=== PATIENT | male | born 1995 | race Caucasian/White ===

== ENCOUNTER 2018-02-17 13:36 | Inpatient (IN) | payer BC, OTHER ==
[~2018-02-17] VITALS: Ht 167.6 cm; Wt 60.8 kg
--- NOTE | 2018-02-17 21:45 | NUR ---
INTAKE ASSESSMENT BP:111/66, HR: 66, RR: 16,SpO2:97%, T:98.0 Pt is stable and able to be admitted on the unit. Pt reports he is here to detox off of Heroin and Methamphetamine. He reports he uses Heroin and Meth via IV or smoking 1-1.5 grams daily. Last use was 0100. Unit protocols regarding mediations and vitals signs Q4H were explained. Will continue admission upon arrival on the unit.
--- NOTE | 2018-02-17 21:54 | NUR ---
ADMISSION NOTE PATIENT IS A 23 YEAR OLD MALE WHO PRESENTS TO [facility] FOR MEDICALLY SUPERVISED WITHDRAWAL FROM HEROIN AND METHAMPHETAMINE. HEIGHT IS 56 AND WEIGH IS 138 LBS. BODY CHECK DONE. SKIN INTACT. RESPIRATION EVEN AND UNLABORED. NO SOB. LUNGS CLEAR AND ABDOMEN SOFT AND NON-DISTENDED. BOWEL SOUNDS ACTIVE. PATIENT PRESENTS WITH FLAT AFFECT, DEPRESSED MOOD, EYE AVOIDANT, ODOROUS, FINGERNAILS DIRTY, DISHEVELED, HAIR IS MESSY, UNSHAVEN, MODERATELY INTOXICATED. PATIENT DOZES OFF DURING INTERVIEW AND DELAYED IN RESPONSE. PATIENT DENIES PAST MEDICAL HISTORY, NO SEIZURE HISTORY, NO HISTORY OF OVERDOSE, NO INVOLUNTARY PSYCH HOSPITALIZATION AND NO S/HI. PATIENT CLOSED OFF AND DOES NOT WANT TO ELABORATE. PATIENT ANXIOUS, IRRITABLE, SWEATING , YAWNING AND NOSE STUFFY. COWS 6 UPON ASSESSMENT. PATIENT HAS NOT PROVIDED UA AT THIS TIME. PATIENT REQUESTED TO BE FULL CODE AND ON REGULAR DIET. PATIENT STATES HES HOMELESS AND UNEMPLOYED. PATIENT IS SEEKING TREATMENT BECAUSE I WANT TO STOP . HE STATES ITS HIS FIRST TIME IN DETOX AND NEVER TRIED TO GET SOBER. PATIENT DOES NOT HAVE PCP. SUBSTANCE HISTORY 1. HEROIN IV/SMOKE-STARTED USING AT AGE 17. HE TAKES 1-1.5 GRAM DAILY FOR 6 YEARS. LAST USE WAS 1 GRAM ON 02/17/18 AT 0100 2.METHAMPHETAMINE IV/SMOKE-STARTED USING AT AGE 19. HE TAKES 1-1.5 GRAM DAILY FOR 4 YEARS. LAST USE WAS 1 GRAM ON 02/17/18 AT 0100. PATIENT REFUSES PNEUMONIA VACCINE. PATIENT ORIENTED TO SURROUNDINGS AND HOW TO USE CALL LIGHT . SAFETY MEASURES IN PLACE. CALL LIGHT IN REACH. WILL CONTINUE TO MONITOR. Addendum: 02/18/18 at 0703 by DALIA BEST LVN PATIENT WAS HERE AT 2009 AT INTAKE AT STATES THAT HE DOES NOT WANT TO BE HERE AND LEFT. PATIENT CAME BACK. PATIENT INTOXICATED DESPITE STATING HE LAST USE HEROIN AND METHAMPHETAMINE AT 0100 ON 02/17/18. PATIENT CAME IN WITH CONTRABAND.
[2018-02-17] MEDS ORDERED: LOPERAMIDE HCL 2 MG CAPSULE PO PRN ×2 (22:15)
[2018-02-17] MEDS ORDERED: BUPRENORPHINE HCL 2 MG TAB.SUBL SL PRN (22:15)
[2018-02-17] MEDS ORDERED: IBUPROFEN 400 MG TABLET PO PRN (22:15)
[2018-02-17] MEDS ORDERED: ONDANSETRON 4 MG/2 ML VIAL IM PRN (22:15)
[2018-02-17] MEDS ORDERED: METHOCARBAMOL 750 MG TABLET PO PRN (22:15)
[2018-02-17] MEDS ORDERED: HYDROXYZINE PAMOATE 25 MG CAPSULE PO PRN (22:15)
[2018-02-17] MEDS ORDERED: MAG HYDROX/AL HYDROX/SIMETH 30 ML LIQUID UDC PO PRN (22:15)
[2018-02-17] MEDS ORDERED: MIRALAX 17 GM POWD.PACK PO PRN (22:15)
[2018-02-17] MEDS ORDERED: ACETAMINOPHEN 325 MG TABLET PO PRN (22:15)
[2018-02-17] MEDS ORDERED: ONDANSETRON ODT 4 MG TAB.RAPDIS SL PRN (22:15)
[2018-02-17] MEDS ORDERED: diphenhydrAMINE 50 MG CAPSULE PO PRN (22:15)
[2018-02-17] MEDS ORDERED: CLONIDINE HCL 0.1 MG TABLET PO PRN (22:15)
[2018-02-17] MEDS ORDERED: MAGNESIUM HYDROXIDE 30 ML LIQUID UDC PO PRN (22:15)
[2018-02-18] VITALS: BP 107/69
--- NOTE | 2018-02-18 | NUR ---
COWS ASSESSMENT PATIENT WOKE UP WHEN VS WAS TAKEN. PATIENT ANXIOUS, IRRITABLE AND NOTED SWEATING. CIWA 5 UPON ASSESSMENT. WILL CONTINUE TO MONITOR
[2018-02-18] MEDS ORDERED: PERI-COLACE (02:01)
[2018-02-18 04:00] VITALS: BP 106/68
--- NOTE | 2018-02-18 04:00 | NUR ---
COWS ASSESSMENT PATIENT IN BED WITH EYES CLOSED. RESPIRATION EVEN AND UNLABORED. WILL CONTINUE TO MONITOR. Addendum: 02/18/18 at 0707 by DALIA BEST LVN [place]
--- NOTE | 2018-02-18 07:12 | NUR ---
END OF SHIFT NOTE PATIENT SLEPT 5 HOURS. FLUID INTAKE 250 ML. VOIDED X 0. NO BM. MONITORED PATIENT THROUGHOUT SHIFT. UA HAS NOT BEEN PROVIDED AT THIS TIME. HE REFUSED BLOOD DRAW. PATIENT DID NOT RECEIVE ANY PRN MEDICATION. PATIENT CAME IN MODERATELY INTOXICATED. ENCOURAGED FLUIDS. LAST COWS 5. SAFETY MEASURES IN PLACE. CALL LIGHT IN REACH. WILL CONTINUE TO MONITOR.
[2018-02-18 08:00] VITALS: BP 121/75
--- NOTE | 2018-02-18 08:00 | NUR ---
Start of Shift Notes: Received patient in his room. He appears disheveled and unkempt. He is unshaved with hair tangled and uncombed. Room appears messy and odorous. There was garbage on the floor and clothes on the floor. Patient appears sedated and hypersomnolent but arousable when his name is called. He is noted to fall back to sleep immediately. He refused blood draw this AM and has not given urine for UDS. Education provided. Encouraged to comply with unit's rules and to maintain his personal hygiene and space. Patient is a 23 year old male admitted for opiate and methamphetamine withdrawal. He was placed on a 5-day Subutex taper as ordered that will be starting this AM. He did not receive any PRN meds during the nigh and slept for most of the night. All needs met and attended. Will continue to monitor.
[2018-02-18] MEDS ORDERED: 5 DAY TAPER BUPRENORPHINE -SERENITY PROTOCOL SL PRN (09:00)
[2018-02-18] MEDS ORDERED: TUBERCULIN,PURIF.PROT.DERIV. 5 TU/0.1 ML TEST ID ONE (09:00)
--- NOTE | 2018-02-18 09:00 | NUR ---
COWS deferred; Patient is sedated and somnolent. He is laying in bed with eyes closed. Breathing even and unlabored. Will obtain COWS when patient is awake per MDs orders. Safety precautions in placed. Call light in reach. Will monitor closely.
[2018-02-18] MEDS: BUPRENORPHINE HCL 2 MG TAB.SUBL SL SCH ×4 (09:59→21:02)
--- NOTE | 2018-02-18 09:59 | NUR ---
Subutex 4 mg SL/TB test not adminstered: Patient continues to be sedated. Subutex 4 mg held at this time. TB test offered. Patient states "No, I'm OK." Patient education provided regarding the risk and benefits but patient still refused. Will continue to monitor and encourage to comply with unit's rules. He still has not provided urine for UDS at this time.
--- NOTE | 2018-02-18 10:57 | NUR ---
COWS Assessment: Patient is now awake. He was able to provide urine for UDS. He states he will have labs drawn in 1 hour. He complains of mild restlessness and anxiety. He states "I don't feel that bad yet cause I just used right before coming in here." Patient education provided regarding his medication regimen. Will continue to monitor. Addendum: 02/18/18 at 1702 by SARITA LEUNG LVN COWS 4 upon waking.
--- NOTE | 2018-02-18 10:58 | NUR ---
Additional admission note: Patient is awake, alert and oriented x 4. Verbally responsive. Patient congruent affect with depressed mood. He appears withdrawn with pressured speech. Upon patient interview, patient states that he wants to get sober to get his life together. He verbalizes "I just want to get my life back cause I am homeless right now and it's not fun living in the streets and not having my life back." He reports that his usual s/s of withdrawal is anxiety, agitation and restlessness. He reports that his longest period of sobriety was 60 days in 2017. Will continue to monitor. Addendum: 02/18/18 at 1128 by SARITA LEUNG LVN When asked what are his usual withdrawal symptoms, he states "I just feel anxious like I have to use again so I get restless and agitated."
[2018-02-18 11:24] LABS: *AMPHETAMINE, URINE POSITIVE (NEGATIVE); *BARBITURATE, URINE NEGATIVE (NEGATIVE); *CANNABINOID, URINE NEGATIVE (NEGATIVE); *COCCAINE, URINE NEGATIVE (NEGATIVE); *OPIATE, URINE POSITIVE (NEGATIVE); *PHENCYCLIDINE SCREEN,URINE NEGATIVE (NEGATIVE)
[2018-02-18 11:59] LABS: BASOPHILS % (AUTO) 0.6 % (0.0-2.0); EOSINOPHILS # (AUTO) 0.2 K/uL (0.0-0.7); EOSINOPHILS % (AUTO) 2.6 % (0.0-7.0); HEMATOCRIT 40.4 % (36.7-47.1); HEMOGLOBIN 14.1 g/dL (12.5-16.3); LYMPHOCYTES # (AUTO) 1.4 K/uL (20.0-40.0); LYMPHOCYTES % (AUTO) 22.6 % (20.5-51.5); MEAN CORPUSCULAR HGB CONC 35 g/dL (32.5-36.3); MEAN CORPUSCULAR VOLUME 88.7 fL (73.0-96.2); MONOCYTES # (AUTO) 0.3 K/uL (2.0-10.0); MONOCYTES % (AUTO) 4.2 % (0.0-11.0); NEUTROPHILS # (AUTO) 4.3 K/uL (1.8-8.9); PLATELET COUNT (AUTO) 218 K/uL (152-348); RED BLOOD CELL COUNT(AUTO) 4.56 MIL/uL (4.06-5.63); WHITE BLOOD COUNT (AUTO) 6.2 K/uL (3.6-10.2)
[2018-02-18 12:00] VITALS: BP 113/69
[2018-02-18 12:10] LABS: ALANINE AMINOTRANSFERASE 28 U/L (16-63); ALKALINE PHOSPHATASE 55 U/L (50-136); AMYLASE 43 U/L (25-115); ASPARTATE AMINOTRANSFERASE 24 U/L (15-37); BILIRUBIN,TOTAL 0.3 mg/dL (0.2-1.0); CARBON DIOXIDE 30 mmol/L (21-32); CHLORIDE 105 mmol/L (98-107); CREATININE 1.1 mg/dL (0.6-1.3); GLUCOSE 116 mg/dL (74-106); LIPASE 164 U/L (73-393); MAGNESIUM 1.8 mg/dL (1.8-2.4); POTASSIUM 3.9 mmol/L (3.5-5.1); TOTAL PROTEIN, SERUM 6.8 g/dL (6.4-8.2); UREA NITROGEN, BLOOD 10 mg/dL (7-18)
[2018-02-18 12:11] LABS: ETHANOL < 3 MG/DL (0-0)
[2018-02-18 12:18] LABS: THYROID STIMULATING HORMONE 0.378 mIU/mL (0.358-3.740)
--- NOTE | 2018-02-18 13:15 | NUR ---
Subutex 4 mg SL not administered: Subutex 4 mg SL not administered. Patient refused. He states "It's way too soon to take that, I'm going to be sick." Education provided. Informed patient to call nurse immediately when he is ready.
[2018-02-18 16:00] VITALS: BP 124/82
--- NOTE | 2018-02-18 17:02 | NUR ---
COWS Assessment/Subutex 4 mg SL held: COWS 4, patient noted with restlessness while in bed, facial flushing and sweating noted. Subutex 4 mg SL held at this time. Patient is too sedated. He is noted to fall back asleep when he opens his eyes and is hypersomnolent. VS stable.
--- NOTE | 2018-02-18 19:24 | NUR ---
End of Shift Notes: Patient continues to be on 5-day Subutex taper. Patient is on day 1 today. VS monitored closely. No significant abnormalities noted. Withdrawal symptoms were closely monitored. Initial COWS in AM 4, patient presented with chills, hot flashes, and anxiety. Subutex at 0900, 1300 and 1700 held. Patient states that he is still not ready to take Subutex since he last used minutes prior to coming in here. He was unable to participate in group and activities. Labs drawn. UDS provided. MD aware. Last COWS 4. No PRNs given. Patient was asleep for most of the shift. All needs met and attended. Safety precautions in place. Will continue to monitor.
--- NOTE | 2018-02-18 19:30 | NUR ---
Start of shift note Received report from day shift nurse. Patient is a 23 year old male admitted for Opiate/Meth Withdrawal. Patient was placed on 5 days Subutex taper. Subutex has not been started due to patient's refusal. Patient was educated. Patient did not require PRN medication. Last COWS 4. Patient in the room with flat affect, depressed mood, eye avoidant, disheveled, odorous, diaphoretic, anxious, restless, nauseated, tremors felt but not observed, poor appetite, yawning and restless. Fluids encouraged. Safety measures in place. Call light in reach. Will continue to monitor.
[2018-02-18 20:00] VITALS: BP 112/85
--- NOTE | 2018-02-18 20:00 | NUR ---
COWS Assessment Patient diaphoretic, anxious, restless, nauseated, irritable, agitated, tremors felt but not observed, poor appetite, yawning, sensitive to light and sounds, and restless legs, Fluids encouraged. Safety measures in place. Call light in reach. Will continue to monitor.COWS 12.
--- NOTE | 2018-02-18 21:01 | NUR ---
PRN Zofran SL administration Patient nauseated, no emesis. Will monitor for effectiveness
--- NOTE | 2018-02-18 21:31 | NUR ---
PRN Saeid SL re-assessment Patient states Zofran helpful . Nausea ceased. Will continue to monitor
[2018-02-19] VITALS: BP 136/86
--- NOTE | 2018-02-19 | NUR ---
COWS assessment Patient lying in bed with eyes closed. Respiration even and unlabored. Will continue to monitor. Addendum: 02/19/18 at 0651 by DALIA BEST LVN [place] n[place]
--- NOTE | 2018-02-19 04:00 | NUR ---
COWS deferred Patient lying in bed with eyes closed. Respiration even and unlabored. Will continue to monitor. Addendum: 02/19/18 at 0650 by DALIA BEST LVN Patient refused VS
--- NOTE | 2018-02-19 07:30 | NUR ---
Start of Shift Pt. is a 23 y/o male admitted for the medically managed withdrawal from Opiates and Methamphetamines. Pt. was placed on a 5 day subutex taper to manage withdrawal symptoms. Endorsed pt. presented during previous shift with anxiety, nausea, tremors, irritability, restless, withdrawn guarded and isolative. Received pt. in room laying in bed with eyes closed. Pt. and room both appear disheveled with personal belongings cluttered about. No signs of SOB noted. Pt. arousable to name and touch but does not open his eyes, and just goes back to sleep. Last COW's of 12. Safety measures in place. Will continue to monitor pt.'s behavior for safety.
--- NOTE | 2018-02-19 07:32 | NUR ---
End of shift note Patient slept 11 hours. Fluid intake 500 ml. Voided x 1. No BM . Monitored Patient throughout shift. Patient withdrawn, tends to isolate self. Patient with eye avoidant , flat affect, depressed mood. Patient was diaphoretic, anxious, restless, nauseated, tremors felt but not observed, poor appetite, yawning and restless. Patient started Subutex for COWS 12, no adverse reaction. Patient was educated. Fluids encouraged. Safety measures in place. Call light in reach. Will continue to monitor. Last COWS 12.
[2018-02-19 08:00] VITALS: BP 103/59
--- NOTE | 2018-02-19 08:00 | NUR ---
COW's Assessment Pt. laying in bed moving his feet with eyes closed. Pt. presents as disheveled, diaphoretic, with fine hand tremors, nasal congestion, anxiety and complains of mild body aches. Pt. compliant with taper medications. Will continue to monitor the pt.'s behavior for safety.
--- NOTE | 2018-02-19 08:30 | NUR ---
Treatment History Update Pt. presents as disheveled, guarded, withdrawn, with poor eye contact and a sad affect. Pt. in bed with hair unkempt, and linen falling off the bed at this time. When questioned about previous treatment history pt. responds with eyes still closed. When questioned about previous treatment history responds by saying "I don't remember." Pt. confirms having been in treatment in the past but denies knowing any details about it. Pt. questioned about his most recent treatment but continues to answer "I don't remember" to all inquiries including, name of treatment center, durations of stay, location of treatment center, how recently he was in treatment. Will continue to monitor pt.'s behavior for safety.
[2018-02-19] MEDS: BUPRENORPHINE HCL 2 MG TAB.SUBL SL SCH ×3 (09:30→20:51)
--- NOTE | 2018-02-19 09:30 | NUR ---
Treatment History Update During medication pass pt. was asked about his treatment history. Pt. stated "I think I [facility] in [facility] in [place], maybe in July or August last year, but I really can't remember." Will continue to follow up with pt. as the day goes by. Will continue to monitor pt. for safety.
[2018-02-19 12:00] VITALS: BP 96/53
--- NOTE | 2018-02-19 12:00 | NUR ---
COW's Assessment Pt. continues to lay in bed with closed constantly changing position. Pt. presents as disheveled, diaphoretic, with fine hand tremors, nasal congestion, anxiety, nausea and complains of mild body aches. Pt. compliant with taper medications. Offered pt. PRN's for his symptoms but pt. refused stating he only wanted his Subutex. Will continue to monitor pt.'s behavior for safety.
[2018-02-19 13:07] LABS: HEPATITIS B SURFACE AG Negative (Negative)
[2018-02-19 16:00] VITALS: BP 105/62
--- NOTE | 2018-02-19 16:00 | NUR ---
COW's Assessment COW's 13. Pt. continues to presents as disheveled, diaphoretic, with fine hand tremors, nasal congestion, anxiety and complains of mild body aches. Pt. compliant with taper medications. No PRN's given per pt.'s request. Will continue to monitor pt.'s behavior for safety.
--- NOTE | 2018-02-19 19:11 | NUR ---
End of Shift Pt. is a 23 y/o male admitted for the medically managed withdrawal from Opiates and Methamphetamines. Pt. was placed on a 5 day subutex taper to manage withdrawal symptoms. Throughout shift pt. continuously presented with anxiety, nausea, tremors, irritability, restlessness, withdrawn, guarded and isolative. For the majority of the shift pt. remained in bed. Encouraged pt. to attend groups and activities. Last COW's of 13. No PRN's given during shift. Safety measures in place. Will endorse pt.'s behavior to oncoming shift.
[2018-02-19 20:00] VITALS: BP 109/69
--- NOTE | 2018-02-19 20:00 | NUR ---
Start of Shift Pt is a 23 year old male admitted for Heroin withdrawal, placed on a 5 day Subutex taper. Upon entering pt room, pt presents in bed. Pt is noted is noted to be sleeping, but is easily woken up. Room is messy, clothes thrown on floor. Pt appears disheveled, hair uncombed, flushed, clammy skin with sweat noted throughout body, is odorous, light is off. Pt moans when light is turned on and stated, Please, turn it off. Pt is irritable, anxious and responds to questions vaguely. COWS 12 scheduled medications due. Safety measures in place, will continue to monitor.
[2018-02-20] VITALS: BP 102/69
--- NOTE | 2018-02-20 | NUR ---
COWS deferred due to pt sleeping - to assess while pt is awake as ordered. Respirations unlabored. safety measures in pace, will continue to monitor.
--- NOTE | 2018-02-20 04:00 | NUR ---
COWS deferred due to pt sleeping - to assess while pt is awake as ordered. Respirations unlabored. safety measures in pace, will continue to monitor.
--- NOTE | 2018-02-20 07:20 | NUR ---
End of Shift Pt is a 23 year old male admitted for Heroin withdrawal, placed on a 5 day Subutex taper. During shift, remained in room all throughout shift. Pt is noted is noted to be sleeping, but was easily woken up. Room appears messy, clothes thrown on floor. Pt appears disheveled, hair uncombed, flushed, clammy skin with sweat noted throughout body, is odorous, light is off. Pt moans when light is turned on and stated, Please, turn it off. Pt is irritable, anxious and responds to questions vaguely. COWS 12 scheduled medications administered. Pt encouraged to leave room and participate in activities, however pt become irritable when encouragement is being given. No PRN medications administered during shift. Pt slept for 10 hours, intake of 800 ml and voids x1. Safety measures in place, endorsed to day shift nurse.
--- NOTE | 2018-02-20 07:25 | NUR ---
Start of Shift Pt. is a 23 y/o male admitted for the medically managed withdrawal from Opiates and Methamphetamines. Pt. was placed on a 5 day Subutex taper. Endorse pt. presented with flushed skin, diaphoresis, odorous, light sensitivity, irritability, anxiety, and a disheveled appearance. Received pt. in room. Pt. laying in bed with eyes closed. No Signs of SOB noted. Pt.s person and personal space appears disheveled and malodorous. Pt.s linen is falling of the bed and his personal belongings clutter the floor. Pt. responds to name but becomes irritable and just tries to go back to sleep. Last Cows 12. Encouraged pt. to participate in unit activities and groups. Encouraged pt. to maintain a hygienic person and personal space. Safety measures in place. Will continue to monitor pt.'s behavior for safety.
[2018-02-20 08:00] VITALS: BP 121/81
--- NOTE | 2018-02-20 08:00 | NUR ---
Cow's Assessment COW's of 13. Pt. in his bed and presents with diaphoresis, irritability, restlessness, restless legs, tremors that can be felt, and yawning. Pt. reports an increase sense of anxiety and stomach cramps. Pt. compliant with Subutex taper but refuses offered PRN's. Education provided but pt. still refused PRN medications. Will continue to monitor pt.'s behavior safety.
[2018-02-20] MEDS ORDERED: BUPRENORPHINE HCL 2 MG TAB.SUBL SL SCH (09:00)
[2018-02-20] MEDS: DICYCLOMINE HCL 20 MG TABLET PO PRN (12:00)
--- NOTE | 2018-02-20 12:00 | NUR ---
Cow's Assessment COW's of 12. Pt. in his bed and presents with diaphoresis, irritability, restlessness, restless legs, tremors that can be felt, and yawning. Pt. reports an increase sense of anxiety and stomach cramps. Pt. compliant with Subutex taper. Pt. given PRN Bentyl at this time to aid with withdrawal symptoms. Will continue to monitor pt.'s behavior safety.
--- NOTE | 2018-02-20 12:00 | NUR ---
PRN Medication Pt. in room complaining of stomach craps. Pt. presents with diaphoresis, anxiety and restlessness. PRN Bentyl given at this time. Will continue to monitor pt. for medication effectiveness, and safety.
[2018-02-20 12:20] VITALS: BP 110/60
--- NOTE | 2018-02-20 13:00 | NUR ---
PRN Medication Re-Assessment Pt. laying in bed disheveled with a cluttered personal space. Pt. reports no longer having any stomach cramps. Medication effective. Will continue to monitor pt.'s behavior for safety.
[2018-02-20] MEDS: BUPRENORPHINE HCL 2 MG TAB.SUBL SL SCH ×2 (14:12→21:00)
--- NOTE | 2018-02-20 16:00 | NUR ---
Cow's Assessment COW's of 12. Pt. in his bed and presents with diaphoresis, restlessness, restless legs, tremors that can be felt, and yawning. Pt. reports an increase sense of anxiety. Pt. compliant with Subutex taper. Will continue to monitor pt.'s behavior safety
[2018-02-20 16:51] VITALS: BP 108/55
--- NOTE | 2018-02-20 19:10 | NUR ---
End of Shift Pt. is a 23 y/o male admitted for the medically managed withdrawal from Opiates and Methamphetamines. Pt. was placed on a 5 day Subutex taper to manage withdrawal symptoms. Pt. presented throughout shift with flushed skin, diaphoresis, odorous, light sensitivity, irritability, anxiety, body aches, abdominal cramps and a disheveled appearance. Upon approach pt. guarded, withdrawn with a flat affect. PRN Bentyl given to manage withdrawal symptoms. Last Cows 12 at 1600. Safety measures in place. Will endorse pt.s care to oncoming shift.
--- NOTE | 2018-02-20 19:56 | NUR ---
START OF SHIFT NOTE Rcvd report from outgoing nurse. Pt is a 23 y/o male A/O to [facility], place, time, and purpose. Pt was admitted for medically supervised withdrawal from Heroin and Methamphetamines. Pt has been presenting w/ fine tremors, yawning, stuffy nose, and sweats. Pt has been c/o body aches and stomach cramps. Pt has been in his room most of the day in bed. Pt denies S/I and H/I. PRN Bentyl was given during previous shift. Last COWS 12 @ 1600. Call light is within reach. Pt will continue to be monitored and needs met.
[2018-02-20 20:00] VITALS: BP 110/70
--- NOTE | 2018-02-20 20:00 | NUR ---
COWS ASSESSMENT COWS 14. Pt has been presenting w/ fine tremors, yawning, stuffy nose, and sweats. Pt has been c/o body aches and stomach cramps. Pt has been in his room most of the day in bed.V/S: T:97.9, P:62, RR:14, SPO2:99, and BP:119/70.
--- NOTE | 2018-02-21 | NUR ---
COWS DEFERRED Pt is in bed w/ his eyes closed. Pt's respirations are unlabored and even.
--- NOTE | 2018-02-21 04:03 | NUR ---
COWS DEFERRED Pt is in bed w/ his eyes closed. Pt's respirations are unlabored and even.
--- NOTE | 2018-02-21 07:33 | NUR ---
END OF SHIFT NOTE Endorsed pt to oncoming nurse. Pt is a 23 y/o male A/O to person, place, time, and purpose. Pt was admitted for medically supervised withdrawal from Heroin and Methamphetamines. Pt has been presenting w/ fine tremors, yawning, stuffy nose, lethargy, withdrawn and depressed mood, blunt affect, and sweats. Pt has been c/o body aches and stomach cramps. Pt has been in his room all night. Pt refused his 2100 dose of Subutex. Pt stated I just want to sleep and be left alone. No PRN medications were given during the night. Pts fluid intake was 350ml. Pt slept for 10.75 hrs. Last COWS 14 @ 2000. Call light is within reach.
--- NOTE | 2018-02-21 07:44 | NUR ---
Start Of Shift Patient is a 23 yr old male who was admitted to [facility] on 02/17/18 for a medically supervised withdrawal from Opiates ( heroin) and Methamphetamines. He has been placed on a 5 day Subutex taper and this is day 3. No PRN medications were required or requested on PM shift. His last COWS was 14. Currently he is asleep in bed at this time, breathing even and unlabored, side rails upx2, call light within reach. Continue to follow MD plan of care and offer support as needed.
[2018-02-21 08:00] VITALS: BP 115/79
--- NOTE | 2018-02-21 08:45 | NUR ---
COWS 15 Patients withdrawal symptoms present as : myalgia, generalized all over body aches,stomach cramps, increased anxiety/irritability and lethargy. PRN Robaxin 750 MG Po, Motrin 400 MG PO, Tylenol 650 MG PO, Bentyl, Vistaril 50 MG PO and Clonidine 0.1 MG PO given at this time.
--- NOTE | 2018-02-21 08:50 | NUR ---
PRN Medications: Clonidine 0.1MG Po and Vistaril 50 MG Po given for reports on increased anxiety/agitation Bentyl given for stomach cramps Motrin 400 MG Po, Tylenol 650 MG Po and Robaxin 750 Mg PO given for reports of myalgia, restless legs, generalized body aches. will continue to monitor
[2018-02-21] MEDS: BUPRENORPHINE HCL 2 MG TAB.SUBL SL SCH ×3 (08:51→21:00)
[2018-02-21] MEDS: DICYCLOMINE HCL 20 MG TABLET PO PRN (08:51)
--- NOTE | 2018-02-21 09:50 | NUR ---
PRN Reassess Patient lying in bed with eyes closed but easily arouses to name, he states that the PRN medications were effective, stomach cramps are gone and his anxiety has decreased and pain level is now at 3/10 ( was 7/10) will continue to assess
[2018-02-21 12:00] VITALS: BP 96/51
--- NOTE | 2018-02-21 12:00 | NUR ---
COWS 12 patients withdrawal symptoms present as extreme lethargy, anhedonia, emotional volatility, generalized discomfort, depression and increased startle response with sensitivity to light and sound. PRN Vistaril, Robaxin, Motrin, Tylenol, Bentyl and Clonidine were given this AM with positive results.
--- NOTE | 2018-02-21 15:00 | NUR ---
Subutex Refused Patient refused scheduled 2 MG SL Subutex, he states " I'm fine, I'm sleeping, I don't need it ".
--- NOTE | 2018-02-21 16:00 | NUR ---
COWS 11 Patients withdrawal symptoms include extreme irritability, anhedonia, lethargy, emotional volatility and sensitivity to light. He refused scheduled 1500 Subutex and refuses any PRN medications, he did get out of bed to go smoke on patio. will continue to offer support.
[2018-02-21 16:30] VITALS: BP 99/44
--- NOTE | 2018-02-21 19:04 | NUR ---
End Of Shift: Patient is a 23 yr old male who was admitted to [facility] on 02/17/18 for a medically supervised withdrawal from Opiates ( heroin) and Methamphetamines. He has been placed on a 5 day Subutex taper and this is day 4. He refused scheduled 1500 Subutex 2 MG stating he wanted to sleep and didn't need it. He has been isolative to his room all shift coming out on occasion to smoke or to get snacks, he has been extremely irritable, lethargic, emotionally volatile , sensitive to light and sound and displays anhedonia. He refused to join group therapy today despite encouragement. He had a fluid intake of 1600ML, 1 Voids and 0 BM, last COWS 11 @ 1600. Continue to follow MD plan of care and offer support as needed. Endorsed to overnight stocker.
--- NOTE | 2018-02-21 19:15 | NUR ---
Start of Shift Note: Patient is a 23 y.o male admitted on 02/17/18 for medically supervised withdrawal from Heroin use. Patient is alert & oriented x3. He appears disheveled, unkempt, and malodorus. Encourage pt to maintain proper hygiene. Room is cluttered with scattered clothes, food, & empty bottles all throughout her room. Patient is isolative and withdrawn, and stays in his room most of the time per day shift. He presents with anxious and agitated mood. He denies pain& discomfort. No N/V/D noted. Skin moist/clammy. He is on a 5-day Subutex taper. Pt refused his last dose of Subutex at 1500. He received PRN Vistaril, Motrin, Tylenol, Bentyl & Clonidine during day shift. Last . Pt encourage to increase fluid intake for hydration. Educated pt of current plan of care for the night and medication regimen. Safety measures in place. Will continue to monitor patient.
[2018-02-21 20:00] VITALS: BP 101/64
--- NOTE | 2018-02-21 21:00 | NUR ---
Subutex Refused Patient refused scheduled Subutex at 2100. Pt stated " I don't need it. Pt presented with anxious and irritable mood. Skin is moist & clammy. Denies any pain & discomfort. No N/V/D noted. COWS 9 at this time. Explained to pt benefits of medication but still refused. Will continue to monitor patient.
--- NOTE | 2018-02-22 | NUR ---
Vitals/COWS deferred Patient in bed with eyes close. Pt refused vitals at this time. Respiration even & unlabored. Unable to assess COWS at this time will reassess when pt is awake. Safety measures in place. Will continue to monitor patient.
--- NOTE | 2018-02-22 04:00 | NUR ---
Vitals/COWS deferred Patient asleep in bed and appears comfortable. Pt refused vitals at this time. Respiration even & unlabored. Unable to assess COWS at this time will reassess when pt is awake. Safety measures in place. Will continue to monitor patient.
--- NOTE | 2018-02-22 07:17 | NUR ---
End of Shift Note: Continue to closely monitor patient. He remains alert & oriented x3. He remains isolative and withdrawn and stayed in his room throughout the shift. Pt presented with anxiety, agitation, sweating, & fine tremors. Pt continues to present in a disheveled state. He is on a 5-day Subutex taper but refused his scheduled Subutex at 2100, pt stated "I don't need it". No PRN medication received during my shift. Last COWS 9. Pt remained stable and vitals noted WNL. Continue to encourage pt to increase fluid intake for hydration and to attend group activities to learn coping skills. He slept thoughout the night for a total of 11 hours. Fluid intake 100 ml, he did not go to the bathoom throught my shift. All needs attended. Safety measures in place. Will endorse pt to day shift nurse.
--- NOTE | 2018-02-22 08:12 | NUR ---
BEGINNING OF SHIFT Patient endorsement report received from shift leader nurse, all pertinent information was discussed. Patient is a 23 year old male admitted on 02/17/2018, with admitting Dx: opiate withdrawal. Patient also with substance use of: methamphetamine. Patient continues under close observation. Per shift leader patient received no PRN medications. Patient slept for 11 hours. Patient Continues on 5 day Subutex taper as ordered, and is currently scheduled to begin day 5. Patient with last COW score of: 9. Safety measures are in place. patient received awake, alert and oriented x4. Educated regarding plan of care for the day and medication regimen. Will continue to monitor closely.
[2018-02-22 08:24] VITALS: BP 113/64
[2018-02-22] MEDS ORDERED: BUPRENORPHINE HCL 2 MG TAB.SUBL SL SCH (09:00)
--- NOTE | 2018-02-22 09:30 | NUR ---
WITHDRAWAL SYMPTOMS Patient in bed presenting with: chills, dilated pupils, bone and joint aches, moist eyes, nasal congestion, tremors, yawning, anxiety, irritability, agitation, depression, difficulty concentrating, emotional volatility, generalized discomfort. Patient with COW score of: 8. Encouraged patient to increase PO fluid intake as tolerated, will continue to monitor.
--- NOTE | 2018-02-22 10:00 | NUR ---
SUBUTEX REFUSAL Patient refused to take detox medication, subutex. Despite explanaintion of risk vs benefits of refusing detox medication. Patient verbalized " i dont want it" MD notified. Provided with teaching regarding s/sx of withdrawal. will continue to monitor closely. safety measures in place.
[2018-02-22 12:28] VITALS: BP 103/58
--- NOTE | 2018-02-22 13:00 | NUR ---
WITHDRAWAL SYMPTOMS Patient continues to exhibit the following s/sx of withdrawal: chills, dilated pupils, bone and joint aches, moist eyes, nasal congestion, tremors, yawning, anxiety, irritability, agitation, depression, difficulty concentrating, emotional volatility, generalized discomfort. Patient with COW score of: 8. patient with episodes of non compliance of administration of detox medication, MD is aware, offered patient PRN medication and declined. Encouraged patient diversional activities to alleviate anxiety, and encouraged to develop coping skills and utilization of non pharmacological interventions. will continue to monitor.
[2018-02-22 17:22] VITALS: BP 105/66
--- NOTE | 2018-02-22 17:25 | NUR ---
WITHDRAWAL SYMPTOMS Continues to exhibit the following s/sx of withdrawal: chills, dilated pupils, bone and joint aches, moist eyes, nasal congestion, tremors, yawning, anxiety, irritability, agitation, depression, difficulty concentrating, emotional volatility, generalized discomfort. Patient with COW score of: 8. Offered patient PRN medications as needed, and declined. will continue to monitor.
--- NOTE | 2018-02-22 19:06 | NUR ---
END OF SHIFT Monitored patient closely throughout shift, exhibited the following s/sx of withdrawal during shift: chills, dilated pupils, bone and joint aches, moist eyes, nasal congestion, tremors, yawning, anxiety, irritability, agitation, depression, difficulty concentrating, emotional volatility, generalized discomfort. Patient with COW score of: 8. Patient non compliant with Medication administration, Patient offered PRN medications as necessary to manage symptoms, patient declined. Risk vs benefits of refusing detox medications were explained to patient with good verbal understanding. Patients appearance presented: Disheveled, Unkempt, odorous, unshaven, dirty fingernails, odorous breath, poor oral hygiene, unwashed hair, with poor regards to hygiene. Patient was encouraged to self groom and maintain personal area, offered to change dirty linens, refuses change, Inability to perform ADL's without prompting. Patient with poor eye contact. Noted patient with avoidant eye contact, has angry and worried facial expression. Patients affect is flat, with anhedonic mood. Patient encouraged to develop coping skills and utilization of non pharmacological interventions, encouraged to practice self soothing techniques such as progressive muscle relaxation. Due to noted self isolative, patient was encouraged to participate in group therapies/sessions. patient denies SI/HI. Patient currently to be discharged to [facility], noted self motivated towards sobriety, will continue to monitor patient closely for any s/sx of withdrawals. Seen By Dr. Vinson during shift. Safety measures are in place. Call light with in reach. Patient endorsed to warehouse worker 2nd shift nurse, all pertinent information was discussed.
--- NOTE | 2018-02-22 19:15 | NUR ---
Start of Shift Note: Continue to closely monitor patient. Patient is alert & oriented x3. Patient remains isolative and withdrawn, and stays in his room most of the time. He contiues to appear in a disheveled state, unkempt, and malodorus. Encourage pt to maintain self care & proper hygiene. Room is cluttered with scattered clothes, food, & empty bottles all throughout her room. He presents with anxious/irritable mood & he seems depressed. He denies pain& discomfort. No N/V/D noted. Skin moist/clammy. He refused last dose of his Subutex in the morning. He is scheduled to be discharge tomorrow to [facility]. No PRN medications received during day shift. Last COWS 7 CIWA 8. Continue to encourage pt to increase fluid intake for hydration. Educated pt of current plan of care for the night and medication regimen. Safety measures in place. Will continue to monitor patient.
[2018-02-22 20:00] VITALS: BP 106/73
--- NOTE | 2018-02-23 | NUR ---
Vitals/COWS deferred Patient refused vitals. Patient in bed with eyes close. Patient appears comfortable. Respiration even & unlabored. Unable to assess COWS at this time and will reassess when pt is awake. Safety measures in place. Will continue to monitor patient.
--- NOTE | 2018-02-23 04:00 | NUR ---
Vitals/COWS deferred Patient refused vitals. Patient in bed with eyes close. Patient appears comfortable. Respiration even & unlabored. No acute distress noted. Unable to assess COWS at this time and will reassess when pt is awake. Safety measures in place. Will continue to monitor patient.
--- NOTE | 2018-02-23 07:06 | NUR ---
End of Shift Note: Continue to closely monitor patient. He remains isolative and withdrawn and stayed in his room throughout the shift. He was encourage to attend groups to learn new coping skills to prevent relapse. He continues to appear in a disheveled state, unkempt, and malodorus. Encourage pt to maintain self care & proper hygiene. Pt completed Subutex taper and is scheduled to be discharge today to [facility]. Offered pt PRN medications for withdrawal symptoms but refused. Last COWS 7. Pt remained stable and vitals noted WNL. Continue to encourage pt to increase fluid intake for hydration. He slept throughout the night for a total of 10 hours. Fluid intake 500 ml, Voided 1x with no bowel movement. All needs attended. Safety measures in place. Will endorse pt to day shift nurse.
--- NOTE | 2018-02-23 07:30 | NUR ---
Start of shift note; Received report from night nurse. Patient is a 23 year old male admitted on 02/17/18 for Opiate/ Methamphetamine withdrawals. Patient was placed on 5 day Subutex taper. Patient is AOX4, presented with anxiety, complaining of muscle aches, agitation, stomach cramps and generalized discomfort. Patient's last COWS is 7 per endorsement. Patient is medically cleared for discharge today per MD. Patient to be transferred to [facility] treatment to continue sobriety. All safety measures secured. Will continue to monitor patient.
[2018-02-23 08:00] VITALS: BP 128/69
--- NOTE | 2018-02-23 09:40 | NUR ---
Discharge note; Patient is AOX4, completed treatment without any adverse reactions. All valuables, belongings and home medication returned to patient. Patient was accompanied by [employer] to be transferred to [facility] to continue treatment. Patient left the facility at exactly 0940 on 02/23/18. Patient denies S/I and H/I. Patient left in a stable condition.
== END 2018-02-23 09:40 | disposition other institution (70) | DRG 895 ==
LOC: SRC 19:34 → UNDOADMIN 19:34 → SRC 21:16
PROVIDERS: ADMIT Family Medicine Addiction Medicine; ATTEND Family Medicine Addiction Medicine
PROC: HZ2ZZZZ Detoxification Services for Substance Abuse Treatment (ICD-10-PCS; principal; 2018-02-17)
PROC: HZ51ZZZ Individual Psychotherapy for Substance Abuse Treatment, Behavioral (ICD-10-PCS; 2018-02-19)
DX: F15.23 Other stimulant dependence with withdrawal (principal); F11.23 Opioid dependence with withdrawal; F17.210 Nicotine dependence, cigarettes, uncomplicated; Z59.0 Homelessness
CPT/HCPCS: 36415; 80307; 80361; 83690; 83735; 84443; 85025; 86592; 86705; 86803; 87340; 87806; A4663; G0480; Q0162

== ENCOUNTER 2018-04-17 16:12 | Inpatient (IN) | payer BC, OTHER ==
[~2018-04-17] VITALS: Ht 175.3 cm; Wt 70.3 kg
[~2018-04-17 16:12] MED LIST: PERI-COLACE
--- NOTE | 2018-04-17 19:55 | NUR ---
Preadmission Note Patient is a 23 year old male seen at intake, alert oriented x4 and ambulatory with steady gait. Patient is noted to be anxious, withdrawn, poor eye contact, worried and agitated. Patient is being admitted at [facility] for medically supervision of opiate withdrawal. Patient reports consuming heroin IV 1 gram daily for the past 2 months. Patient was a previous patient at [facility] in January 2018. Patient denies past medical history. Initial vital signs: BP 114/65, HR 79, O2 99% sat on room air, RR 18 and denies pain. Will continue plan of care upon arrival on unit.
--- NOTE | 2018-04-17 22:15 | NUR ---
Admission Note Patient is a 23 year old male admitted on 04/17/2018. Patient was admitted at [facility] for medically supervised opiate withdrawal. Patient arrived to unit at 2202 and was introduced to unit. Patient reports using heroin 1 gram IV daily for the past two months. Patient is anxious and agitated with flat affect and poor eye contact. Patient is alert oriented x4 and ambulatory with steady gait. Initial COWS assessment is 11. Patient has no known allergies with a regular diet. Patient is full code. Patient stated that his typical withdrawal symptoms are nausea, hold and cold, and flu like symptoms. Patient denies a history of seizures, blackouts, cardiac complications, and induced delirium due to withdrawal. Patient also denies past medical history. Patient stated he does not have parent history, mother at a young age and father is not in the picture. Patient denies any family history of substance abuse. Substance abuse history: 1) Heroin 1 gram daily IV for the past two months. Patient reports he has been using heroin since he was 17 years old. He was last sober in 2016 for 2 months. Last time he used was 04/17/2018 at 1200. Patient has previously been here at [facility] in January 2018, and relapse once he was discharged. Patient stated " I have tried to get sober in the past but it is really hard." Patient presents with difficulty verbalizing insight. When asked why he has difficulty staying sober he stated: " I dont know, I just like using." He has also been at [facility] in [place] 2016 for 5 days, he does not recall the month. Patient stated he does not have any motivators, and stated "I dont know why, I just want to do it for himself." He mention he has struggle with sobriety for many years. Patient admits of have legal consequences and loosing prior employments because of his addiction. His support system consist of one friend and has no family or girlfriend. Patient denies taking any medications at home. Patient also denies seeing a primary care physician or a psychiatrist. Patient is 5'9 and weights 155 lbs per standing scale. Patients skin is intact, dry, warm, and capillary refill is <3seconds. PERRLA is present, pupils 4 mm bilaterally. Lung sounds are clear bilaterally, abdomen is soft and bowel sounds present in all four quadrants. Last bowel movement was today 04/17/2018. Initial vital signs are as follow: BP 114/65, HR 79, O2 99% sat on room air, RR 18 and denies pain. Respirations are even and unlabored. Patient arrived at unit and was oriented, teaching was provided about policies that are implemented in unit. Patient provided urine and blood work at intake office. Patient is on Fall precautions. Safety measures in place, bed locked in low position, side rails up x2, call light within reach. Will continue to monitor.
--- NOTE | 2018-04-17 22:30 | NUR ---
COWS Assessment Patients COWS is 11. Patient is presenting with s/s of withdrawal: body aches, tremors, stuffy nose, mild sweat and anxiety and agitation. Breathing even and unlabored. Safety measure in place. Will continue to monitor.
[2018-04-17 22:48] LABS: *AMPHETAMINE, URINE POSITIVE (NEGATIVE); *BARBITURATE, URINE NEGATIVE (NEGATIVE); *CANNABINOID, URINE NEGATIVE (NEGATIVE); *COCCAINE, URINE NEGATIVE (NEGATIVE); *OPIATE, URINE POSITIVE (NEGATIVE); *PHENCYCLIDINE SCREEN,URINE NEGATIVE (NEGATIVE)
[2018-04-17] MEDS ORDERED: IBUPROFEN 600 MG TABLET PO PRN (23:15)
[2018-04-17] MEDS ORDERED: MAG HYDROX/AL HYDROX/SIMETH 30 ML LIQUID UDC PO PRN (23:15)
[2018-04-17] MEDS ORDERED: LOPERAMIDE HCL 2 MG CAPSULE PO PRN ×2 (23:15)
[2018-04-17] MEDS ORDERED: diphenhydrAMINE 50 MG CAPSULE PO PRN (23:15)
[2018-04-17] MEDS ORDERED: ONDANSETRON ODT 4 MG TAB.RAPDIS SL PRN (23:15)
[2018-04-17] MEDS ORDERED: ACETAMINOPHEN 325 MG TABLET PO PRN (23:15)
[2018-04-17] MEDS ORDERED: MAGNESIUM HYDROXIDE 30 ML LIQUID UDC PO PRN (23:15)
[2018-04-17] MEDS ORDERED: CLONIDINE HCL 0.1 MG TABLET PO PRN (23:15)
[2018-04-17] MEDS ORDERED: MIRALAX 17 GM POWD.PACK PO PRN (23:15)
[2018-04-17] MEDS ORDERED: DICYCLOMINE HCL 20 MG TABLET PO PRN (23:15)
[2018-04-17] MEDS ORDERED: HYDROXYZINE PAMOATE 25 MG CAPSULE PO PRN (23:15)
[2018-04-17] MEDS ORDERED: METHOCARBAMOL 750 MG TABLET PO PRN (23:15)
[2018-04-17] MEDS ORDERED: BUPRENORPHINE HCL 2 MG TAB.SUBL SL PRN (23:15)
[2018-04-18] VITALS: BP 108/63
--- NOTE | 2018-04-18 | NUR ---
COWS Deferred Patient was noted in bed resting with eyes closed, breathing even and unlabored. Per protocol COWS is to be assessed while awake. Safety measures in place. Will continue to monitor.
[2018-04-18 04:00] VITALS: BP 110/69
--- NOTE | 2018-04-18 07:01 | NUR ---
End of shift report Patient is a 23 year old male admitted 04/17/2018. For opiate withdrawal. Patient is currently not on a neymar. Waiting on MD's orders. No PRN's were administered during this shift. Patients last COWS is 11. Patient slept for 6 hours and total intake is 582 ml. Patient voided x1 and had no bowel movements. Respirations are even and unlabored. Safety measures in place, bed locked in low position, side rails up x2, call light within reach. Will endorse to day shift.
--- NOTE | 2018-04-18 07:30 | NUR ---
Start of Shift Animal Husbandman received report on 23 year old male admitted to [facility] on 04/17/18 for medical management of Opiate withdrawals. Pt endorses NKA, full code and regular diet. Denies any chronic PMH. Denies PPH. Pt has no tapers started, with last COWS 11. No PRN medications administered on NOC, per report. Animal Husbandman encounters pt in pts room with pt resting with eyes closed. Even and unlabored respirations noted. Bed in low position, with wheels locked and side rails up x2. Will continue to monitor, support and encourage according to plan of care.
[2018-04-18 08:00] VITALS: BP 112/65
--- NOTE | 2018-04-18 08:00 | NUR ---
COWS 8 Pt is anxious and irritable with fine tremors and complaints of nausea. Will continue to monitor, support and encourage according to plan of care.
[2018-04-18] MEDS: MULTIVITAMINS,THERAPEUTIC TABLET PO SCH (09:00)
[2018-04-18] MEDS ORDERED: TUBERCULIN,PURIF.PROT.DERIV. 5 TU/0.1 ML TEST ID ONE (09:00)
[2018-04-18] MEDS ORDERED: 3 DAY TAPER BUPRENORPHINE -SERENITY PROTOCOL SL PRN (09:00)
[2018-04-18] MEDS: BUPRENORPHINE HCL 2 MG TAB.SUBL SL SCH ×2 (09:00→22:03)
--- NOTE | 2018-04-18 09:00 | NUR ---
Medication Non-Administration Scheduled medication held due to pt's refusal to provide labs. Pt has been educated on the importance of following MD orders and providing labs. Will continue to monitor, support and encourage according to plan of care.
--- NOTE | 2018-04-18 09:00 | NUR ---
Lab Refusal Electronic Imaging System Operator refused to have labs drawn for second time this morning. Pt states he will not have labs drawn, because, " I am not here to give blood." Electronic Imaging System Operator educated pt on need for labs to treat pt properly. Pt refuses and states he will not provide a sample. MIGDALIA myrick. Will continue to monitor, support and encourage according to plan of care. Addendum: 04/18/18 at 1014 by MATT MINA RN Electronic Imaging System Operator also educated pt on possibility of being discharged for failure to comply with treatment. Pt states, " that's fine, discharge me."
--- NOTE | 2018-04-18 10:08 | NUR ---
Update on Substance Use Patient tested positive for amphetamines. When asked by this handbook writer if he has been using amphetamines he at first stated that he had not, but later stated "Yeah, I've used meth sometimes. Maybe I used it a few weeks ago. Patient not able to state how much or how often, but states that it's "rare." On patient's previous admission to [facility] he endorsed the regular use of IV methamphetamines.
[2018-04-18 12:47] VITALS: BP 105/53
--- NOTE | 2018-04-18 12:49 | NUR ---
COWS 10 Pt is diaphoretic, anxious, restless and tremulous with nausea and myalgia, complaints of chills. Will continue to monitor, support and encourage according to plan of care.
[2018-04-18 13:54] LABS: BASOPHILS % (AUTO) 0.6 % (0.0-2.0); EOSINOPHILS # (AUTO) 0.1 K/uL (0.0-0.7); HEMATOCRIT 39.1 % (36.7-47.1); HEMOGLOBIN 13.9 g/dL (12.5-16.3); LYMPHOCYTES # (AUTO) 1.7 K/uL (20.0-40.0); LYMPHOCYTES % (AUTO) 22.4 % (20.5-51.5); MEAN CORPUSCULAR HEMOGLOBIN 31.4 uug (23.8-33.4); MEAN CORPUSCULAR HGB CONC 35 g/dL (32.5-36.3); MEAN CORPUSCULAR VOLUME 88.8 fL (73.0-96.2); MONOCYTES # (AUTO) 0.3 K/uL (2.0-10.0); MONOCYTES % (AUTO) 3.6 % (0.0-11.0); NEUTROPHILS # (AUTO) 5.3 K/uL (1.8-8.9); NEUTROPHILS % (AUTO) 71.4 % (38.5-71.5); PLATELET COUNT (AUTO) 212 K/uL (152-348); RED BLOOD CELL COUNT(AUTO) 4.41 MIL/uL (4.06-5.63); WHITE BLOOD COUNT (AUTO) 7.4 K/uL (3.6-10.2)
[2018-04-18 14:07] LABS: ETHANOL < 3 MG/DL (0-0)
[2018-04-18 14:08] LABS: ALANINE AMINOTRANSFERASE 28 U/L (16-63); ALKALINE PHOSPHATASE 51 U/L (50-136); ASPARTATE AMINOTRANSFERASE 15 U/L (15-37); BILIRUBIN,TOTAL 0.2 mg/dL (0.2-1.0); CARBON DIOXIDE 28 mmol/L (21-32); CHLORIDE 108 mmol/L (98-107); CREATININE 1.1 mg/dL (0.6-1.3); GLUCOSE 87 mg/dL (74-106); MAGNESIUM 1.8 mg/dL (1.8-2.4); POTASSIUM 3.9 mmol/L (3.5-5.1); TOTAL PROTEIN, SERUM 7.1 g/dL (6.4-8.2); UREA NITROGEN, BLOOD 11 mg/dL (7-18)
[2018-04-18 14:33] LABS: THYROID STIMULATING HORMONE 0.295 mIU/mL (0.358-3.740)
[2018-04-18 16:30] VITALS: BP 118/66
--- NOTE | 2018-04-18 16:30 | NUR ---
COWS 9 Pt is anxious, tremulous and anxious with moist skin and no further complaints. Will continue to monitor, support and encourage according to plan of care.
--- NOTE | 2018-04-18 18:40 | NUR ---
End of Shift Router Setter provided report on 23 year old male admitted to [facility] on 04/17/18 for medical management of Opiate withdrawals. Pt endorses NKA, full code and regular diet. Denies any chronic PMH. Denies PPH. Pt staretd on Subutex this am, with last COWS 9. Pt missed first dose of Subutex due to pts non-compliance, but is scheduled for a dose this evening. Pt is A/O x4 and able to make his needs known. Pt with a linear thought process and clear speech pattern. Angry affect and depressed mood. Pt is resistive and non-compliant with treatment. Pt refused labs several times this am, before allowing labs to be drawn.. Pt is anxious, tremulous, moist skin and restless. Pt is irritable and easily agitated. Bed in low position, with wheels locked and side rails up x2.
--- NOTE | 2018-04-18 19:30 | NUR ---
Start of shift Patient is a 23 year old male admitted 04/17/2018. For opiate withdrawal. Patient is on a3 day Subutex taper started on 04/18/2018. Patient is on Fall precautions. Per endorsement patient did not have any medications during day shift. Patients last COWS was 9. Upon rounds patient was noted in room watching tv. 2100 medications were reviewed with patient and he verbalized understanding plan of care. Patient stated he is experiencing some stomach cramps, stuffy nose and mild tremors. I offered patient medications and he stated " I don't want medication for my stomach cramps." Safety measures in place, bed locked in low position, side rails up x2, call light within reach. Will continue to monitor.
[2018-04-18 20:00] VITALS: BP 123/70
--- NOTE | 2018-04-18 20:00 | NUR ---
COWS Assessment Patients COWS is 10. Patient is presenting with s/s of withdrawal: stomach cramps, stuffy nose, tremors, and mild anxiety. Breathing even and unlabored. Safety measure in place. Will continue to monitor.
[2018-04-19] VITALS: BP 108/63
[2018-04-19 04:00] VITALS: BP 108/66
--- NOTE | 2018-04-19 07:28 | NUR ---
End of shift Patient is a 23 year old male admitted 04/17/2018. For opiate withdrawal. Patient is on a 3 day Subutex taper. No PRN's were administered during this shift. Patients last COWS is 10. Patient slept for 10.5 hours and total intake is 1,651 ml. Patient voided x2 and had one bowel movement. Encourage patient to join group and shower but patient refused. Patient is disheveled, isolated, and depressed. Respirations are even and unlabored. Safety measures in place, bed locked in low position, side rails up x2, call light within reach. Will endorse to day shift.
--- NOTE | 2018-04-19 07:35 | NUR ---
Start of shift Pt. is a 23 y/o male admitted for the medically managed withdrawal from Opiates (Heroin). Pt. was placed on a 3 day Subutex taper to manage his withdrawal symptoms. Endorse from previous shift pt. is selective with which medication he takes. Endorse from previous shift pt. presented with anxiety, restlessness, and depression. No PRN's given during previous shift. Last COW's of 10. Received pt. in room. Pt. in bed with eyes closed, linens cluttered about and pt. is disheveled and unshaven. Safety measures in place. Will continue to monitor for pt.'s behavior for safety.
[2018-04-19 08:00] VITALS: BP 104/60
--- NOTE | 2018-04-19 08:00 | NUR ---
COWS Assessment COWS of 9. Pt. in room laying in bed. Pt. presents with a runny nose, tremors, yawning, and body aches. Will offer medication as ordered. Will continue to monitor pt.'s behavior for safety.
[2018-04-19] MEDS: MULTIVITAMINS,THERAPEUTIC TABLET PO SCH (09:00)
[2018-04-19] MEDS: BUPRENORPHINE HCL 2 MG TAB.SUBL SL SCH ×3 (09:00→21:00)
--- NOTE | 2018-04-19 10:18 | NUR ---
Therapist prompted client to attend group therapy.
[2018-04-19 12:00] VITALS: BP 106/65
--- NOTE | 2018-04-19 12:00 | NUR ---
COWS Assessment COWS of 9. Pt. in room laying in bed. Pt. presents with a runny nose, tremors, yawning, and body aches. Will offer medication as ordered, and educated pt. as to their necessity. Will continue to monitor pt.'s behavior for safety.
[2018-04-19 13:06] LABS: HEPATITIS B SURFACE AG Negative (Negative)
[2018-04-19 16:00] VITALS: BP 102/61
--- NOTE | 2018-04-19 16:00 | NUR ---
COWS Assessment COWS of 9. Pt. in room laying in bed. Pt. presents with a runny nose, tremors, yawning, and body aches. Will offer medication as ordered, MD aware of pt.'s medication non compliance. Will continue to monitor pt.'s behavior for safety.
--- NOTE | 2018-04-19 19:00 | NUR ---
End of shift Pt. is a 23 y/o male admitted for the medically managed withdrawal from Opiates (Heroin). Pt. was placed on a 3 day Subutex taper to manage his withdrawal symptoms. Throughout shift pt. presented with anxiety, restlessness, and depression. No PRN's given during shift. Safety measures in place. Will endorse pt.'s care to oncoming shift.
--- NOTE | 2018-04-19 19:30 | NUR ---
Start of shift note Patient is a 23 year old male admitted for Opiate withdrawal. Patient is on 3 day Subutex taper. Patient Isolative and has been refusing Subutex. Patient did not require PRN medication. Last COWS 9. Patient alert and oriented x 4. Patient's room dirty, clothes thrown on floor, snack wrappers, spilled drinks and hoarding food. Patient alert and oriented x 4. Patient presents with flat affect, depressed mood, sad, odorous, unshaven, disheveled and unkempt. Safety measures in place. Call light in reach. Will continue to monitor
[2018-04-19 20:00] VITALS: BP 139/57
--- NOTE | 2018-04-19 20:00 | NUR ---
COWS assessment Patient anxious, restless, irritable, agitated, sweating and fatigue. COWS 7.
--- NOTE | 2018-04-19 21:00 | NUR ---
Refused Subutex Patient refused Subutex. Patient states "I don't need it ". Will continue to monitor.
--- NOTE | 2018-04-20 | NUR ---
COWS deferred Patient alert and oriented x 4. Respiration even and unlabored. VS refused. Will continue to monitor
--- NOTE | 2018-04-20 04:00 | NUR ---
COWS deferred Patient alert and oriented x 4. Respiration even and unlabored. VS refused. Will continue to monitor
--- NOTE | 2018-04-20 07:23 | NUR ---
End of shift note Patient slept 8 hours. Fluid intake1,125 ml. Voided x 2. No BM. Monitored patient throughout shift. Patient Isolative. Patient Refused Subutex . He stated "I don't need it ". Patient presented with flat affect, depressed mood, sad, odorous, unshaven, disheveled and unkempt. Patient did not require PRN medication. Safety measures in place. Call light in reach. Will continue to monitor. Last COWS 7.
--- NOTE | 2018-04-20 07:40 | NUR ---
START OF SHIFT NOTE Received report from night nurse, 23 year old male admitted for Heroin withdrawal. Patient continues on Subutex taper. Per endorsement patient refused his scheduled Subutex and did not received PRN, slept for 8 hours and last COWS score was 7. Received patient alert awake oriented x4 presented with flat facial expression, emotional volatility, poor eye contact, anxious, agitated, bilateral hand tremors noted, unkempt. Patient is due for schedule medications. All safety measures in place, Call light within reach. Will cont to monitor.
[2018-04-20 08:00] VITALS: BP 119/85
[2018-04-20] MEDS: MULTIVITAMINS,THERAPEUTIC TABLET PO SCH (08:52)
--- NOTE | 2018-04-20 08:52 | NUR ---
REFUSED MEDS/COWS ASSESSMENT Patient presented with anxiety, agitation, anhedonia, stuffy nose and Patient refused his scheduled Subutex offered x3 risk and benefits explained, patient still refused and stated " I am doing fine i don't need any Meds". COWS score noted-7, MD notified. Will cont to monitor.
[2018-04-20] MEDS ORDERED: BUPRENORPHINE HCL 2 MG TAB.SUBL SL SCH (09:00)
--- NOTE | 2018-04-20 11:29 | NUR ---
Therapist prompted client to attend group therapy.
[2018-04-20 12:00] VITALS: BP 114/65
--- NOTE | 2018-04-20 12:50 | NUR ---
DISCHARGE NOTE Patient has been discharged from [facility] Patient is in Stable condition, VS WNL. Denies suicidal and homicidal ideations at this time. All documentation has been completed, paperwork signed and dated. Pt left with all of his belongings. Patient did not bring any medications from home. Pt has been discharged from [facility] on 04/20/18 at 1250. has been Notified.
== END 2018-04-20 12:50 | disposition home or self-care (01) | DRG 895 ==
LOC: SRC 21:24
PROVIDERS: ADMIT Family Medicine Addiction Medicine; ATTEND Family Medicine Addiction Medicine
PROC: HZ2ZZZZ Detoxification Services for Substance Abuse Treatment (ICD-10-PCS; principal; 2018-04-17)
PROC: HZ31ZZZ Individual Counseling for Substance Abuse Treatment, Behavioral (ICD-10-PCS; 2018-04-18)
DX: F11.23 Opioid dependence with withdrawal (principal); F15.93 Other stimulant use, unspecified with withdrawal; F32.9 Major depressive disorder, single episode, unspecified
CPT/HCPCS: 36415; 80307; 80324; 80361; 83735; 84443; 85025; 86592; 86705; 86803; 87340; 87806; G0480